=== PATIENT | male | born 1960 | race Hispanic/Latino ===

== ENCOUNTER 2020-01-18 23:46 | Emergency (ER) | payer OTHER ==
[2020-01-19] MEDS ORDERED: FLUORESCEIN SODIUM 1 STRIP STRIP ONE (00:17)
[2020-01-19] MEDS ORDERED: TETRACAINE HCL 0.5% 4 ML OPHTH SOLN ONE (00:17)
[2020-01-19 00:26] LABS: APPEARANCE,URINE Clear (CLEAR); BILIRUBIN,URINE Negative (NEGATIVE); COLOR,URINE Yellow (YELLOW); GLUCOSE, URINE (UA) Negative (NEGATIVE); KETONES,URINE Negative (NEGATIVE); LEUKOCYTE ESTERASE ,URINE Negative (NEGATIVE); NITRATE,URINE Negative (NEGATIVE); OCCULT BLOOD,URINE Negative (NEGATIVE); PH,URINE 5.5 (5.0-8.0); PROTEIN,URINE Negative (NEGATIVE)
[2020-01-19 00:31] LABS: BASOPHILS % (AUTO) 0.8 % (0.0-5.0); EOSINOPHILS % (AUTO) 1.8 % (0.0-8.0); HEMATOCRIT 43.9 % (42-54); LYMPHOCYTES % (AUTO) 13.3 % (21.0-51.0); MEAN CORPUSCULAR HEMOGLOBIN 33.4 pg (27.0-33.0); MEAN CORPUSCULAR HGB CONC 34.4 g/dL (32.0-36.0); MEAN CORPUSCULAR VOLUME 97.1 fL (79-99); MONOCYTES % (AUTO) 6.4 % (3.0-13.0); NEUTROPHILS % (AUTO) 77.3 % (40.0-77.0); PLATELET COUNT (AUTO) 184 K/uL (130-400); RED BLOOD CELL COUNT(AUTO) 4.52 MIL/uL (4.50-6.20); RED CELL DISTRIBUTION WIDTH 13.6 % (11.0-15.5); WHITE BLOOD COUNT (AUTO) 9.6 K/uL (4.8-10.8)
[2020-01-19 00:34] LABS: CREATININE 1.2 mg/dL (0.5-1.5); POTASSIUM 3.9 mmol/L (3.5-5.1)
[2020-01-19 00:38] LABS: BILIRUBIN,TOTAL 0.8 mg/dL (0.2-1.0); INR 0.94 (0.85-1.15); PARTIAL THROMBOPLASTIN TIME 25.6 SEC (26.3-35.5); PROTHROMBIN TIME 10.2 SEC (9.6-11.6); TOTAL PROTEIN, SERUM 7.1 g/dL (6.0-8.3)
[2020-01-19] MEDS ORDERED: ASPIRIN 81MG TAB.CHEW ONE ×2 (02:21→02:26)
[2020-01-19] MEDS ORDERED: MECLIZINE HCL 25 MG TABLET ONE (02:26)
== END 2020-01-19 02:37 | disposition left against medical advice (07) ==
LOC: EDH 23:46
DX: T15.12XA Foreign body in conjunctival sac, left eye, initial encounter (principal); H81.10 Benign paroxysmal vertigo, unspecified ear; R07.89 Other chest pain; X58.XXXA Exposure to other specified factors, initial encounter; Y93.89 Activity, other specified; Y92.89 Other specified places as the place of occurrence of the external cause; Y99.8 Other external cause status
CPT/HCPCS: 36415; 65205; 70450; 71045; 80053; 81003; 82550; 84484; 85025; 85610; 85730; 93005; 96360; 96361